=== PATIENT | male | born 1975 | race Caucasian/White ===

== ENCOUNTER 2016-04-21 14:16 | Inpatient (IN) | payer OTHER ==
[~2016-04-21] VITALS: Ht 170.2 cm; Wt 104.5 kg
[2016-04-21] MEDS ORDERED: CHL25 PO (14:33)
[2016-04-21] MEDS ORDERED: LISI-661 PO (14:33)
[2016-04-21] MEDS ORDERED: MECLIZINE HCL 25 MG TABLET PO ONE (17:15)
[2016-04-21 17:28] LABS: BASOPHILS % (AUTO) 0.2 % (0.0-2.0); EOSINOPHILS % (AUTO) 0.5 % (1.0-6.0); HEMATOCRIT 41.1 % (41-53); HEMOGLOBIN 13.8 g/dL (13.5-17.5); LYMPHOCYTES # (AUTO) 1.2 K/uL (1.0-4.8); LYMPHOCYTES % (AUTO) 15.2 % (22.0-44.0); MEAN CORPUSCULAR HEMOGLOBIN 27.7 pg (26.0-34.0); MEAN CORPUSCULAR HGB CONC 33.7 G/dL (31.0-37.0); MEAN CORPUSCULAR VOLUME 82 fL (80-100); MONOCYTES # (AUTO) 0.4 K/uL (0.1-1.0); MONOCYTES % (AUTO) 4.7 % (2.0-9.0); NEUTROPHILS # (AUTO) 6.1 K/uL (1.8-7.7); NEUTROPHILS % (AUTO) 79.4 % (40.0-70.0); PLATELET COUNT (AUTO) 245 K/uL (150-450); RED BLOOD CELL COUNT(AUTO) 4.98 MIL/uL (4.50-5.90); RED CELL DISTRIBUTION WIDTH 14.6 % (11.5-14.5); WHITE BLOOD COUNT (AUTO) 7.7 K/uL (4.5-11.0)
[2016-04-21 18:06] LABS: ALANINE AMINOTRANSFERASE 21 U/L (12-78); ALBUMIN 3.9 g/dL (3.4-5.0); ANION GAP 20 mmol/L (8-16); ASPARTATE AMINOTRANSFERASE 9 U/L (15-37); BILIRUBIN,TOTAL 0.2 mg/dL (0.1-1.0); CARBON DIOXIDE 12 mmol/L (22-29); CHLORIDE 109 mmol/L (98-107); CREATINE KINASE MB 2.6 ng/mL (0-5); CREATINE KINASE, TOTAL 185 U/L (39-308); CREATININE 9.48 mg/dL (0.60-1.30); GLOMERULAR FILTR. RATE CALC 6 mL/min (>60); SODIUM SERUM 141 mmol/L (136-145)
[2016-04-21 18:11] LABS: UREA NITROGEN, BLOOD 149 mg/dL (7-18)
[2016-04-21 19:01] LABS: CALCIUM, TOTAL 6.8 mg/dL (8.8-10.5); CREATININE 9.63 mg/dL (0.60-1.30); POTASSIUM 4.9 mmol/L (3.5-5.1)
[2016-04-21 19:41] LABS: APPEARANCE,URINE CLOUDY (CLEAR); GLUCOSE, URINE (UA) NEGATIVE (NEGATIVE); KETONES,URINE NEGATIVE (NEGATIVE); LEUKOCYTE ESTERASE ,URINE LARGE (NEGATIVE); OCCULT BLOOD,URINE SMALL (NEGATIVE); PROTEIN,URINE SEE CONFIRM (NEGATIVE)
[2016-04-21] MEDS ORDERED: 0.9% SODIUM CHLORIDE 10 ML SYRINGE IVP PRN (19:45)
[2016-04-21] MEDS ORDERED: ACETAMINOPHEN 325 MG TABLET PO PRN ×2 (19:45→21:30)
[2016-04-21] MEDS ORDERED: ONDANSETRON HCL 4 MG/2 ML VIAL IVP PRN (19:45)
[2016-04-21] MEDS ORDERED: SODIUM BICARBONATE 150 MEQ in DEXTROSE 5%-0.45% SODIUM CHL 1,000 ML IV ONE (19:45)
[2016-04-21 19:51] LABS: ADD UA MICROSCOPIC YES
[2016-04-21 19:51] LABS: ABG A-A DIFF O2 48.3 mmHg (10-20.0); ABG BASE EXCESS -20.9 mmol/L (-2.0-3.0); ABG HCO3 10.5 mmol/L (22.0-26.0); ABG PCO2 24 mmHg (35-45); TEMPERATURE, FAHRENHEIT, BG 98.6 FAHREN (96.0-98.6)
[2016-04-21 19:53] LABS: ALLEN TEST, BLOOD GAS Positive
[2016-04-21 20:06] LABS: RBC,URINE None Seen /HPF (0-2); SULFOSALICYLIC ACID,URINE 1+ (Negative); WBC,URINE >100 /HPF (0-5)
[2016-04-21 21:29] VITALS: BP 142/77
[2016-04-21] MEDS ORDERED: ZOLPIDEM TARTRATE 5 MG TABLET PO PRN (21:30)
[2016-04-21 23:08] VITALS: BP 136/81
[2016-04-21] MEDS: CefTRIAXone 1 GM/DEXTROSE 50 ML IV SCH (23:21)
[2016-04-22] MEDS: SODIUM CHLORIDE 0.9% 1,000 ML IV SCH ×2 (04:24→07:30)
[2016-04-22 04:34] VITALS: BP_SYST 136; BP_SYST 144; BP_DIAS 70; BP_DIAS 83
[2016-04-22 06:07] LABS: ABG A-A DIFF O2 13.4 mmHg (10-20.0); ABG BASE EXCESS -15.3 mmol/L (-2.0-3.0); ABG HCO3 13.9 mmol/L (22.0-26.0); ABG OXYHEMOGLOBIN 96.9 % (94.0-100.0); ABG PCO2 27 mmHg (35-45); ABG PH 7.259 (7.35-7.450); TEMPERATURE, FAHRENHEIT, BG 98.6 FAHREN (96.0-98.6)
[2016-04-22 06:57] LABS: CALCIUM, TOTAL 6.5 mg/dL (8.8-10.5); CREATININE 8.7 mg/dL (0.60-1.30)
[2016-04-22 07:14] VITALS: BP 138/88
[2016-04-22] MEDS: DOCUSATE SODIUM 100 MG CAPSULE PO SCH ×2 (08:22→19:49)
[2016-04-22] MEDS: SODIUM BICARBONATE 100 MEQ in DEXTROSE 5%-WATER 1,000 ML IV SCH ×2 (10:50→21:43)
[2016-04-22 11:36] VITALS: BP 145/92
[2016-04-22 11:57] LABS: GLUCOSE,POINT OF CARE 89 MG/DL (70-110)
[2016-04-22] MEDS ORDERED: 0.9% SODIUM CHLORIDE 10 ML SYRINGE IVP PRN (12:00)
[2016-04-22 15:55] VITALS: BP 153/86
[2016-04-22 19:17] VITALS: BP 153/90
[2016-04-22] MEDS: CefTRIAXone 1 GM/DEXTROSE 50 ML IV SCH (21:42)
[2016-04-22 21:47] LABS: APPEARANCE,URINE CLOUDY (CLEAR); GLUCOSE, URINE (UA) NEGATIVE (NEGATIVE); KETONES,URINE NEGATIVE (NEGATIVE); LEUKOCYTE ESTERASE ,URINE MODERATE (NEGATIVE); OCCULT BLOOD,URINE TRACE (NEGATIVE); PH,URINE 5.5 (5.0-8.0); PROTEIN,URINE POS 1+ (NEGATIVE)
[2016-04-22 21:57] LABS: SQUAMOUS EPITHELIAL CELL,UR Rare /LPF (None Seen); WBC,URINE 26-50 /HPF (0-5)
[2016-04-22 23:48] VITALS: BP 153/89
[2016-04-23 05:09] VITALS: BP 142/94
[2016-04-23 06:47] LABS: CALCIUM, TOTAL 6.4 mg/dL (8.8-10.5); CREATININE 7.25 mg/dL (0.60-1.30); MAGNESIUM 1.9 mg/dL (1.80-2.40); PHOSPHORUS 6.6 mg/dL (2.5-4.9); POTASSIUM 3.5 mmol/L (3.5-5.1)
[2016-04-23] MEDS: SODIUM BICARBONATE 100 MEQ in DEXTROSE 5%-WATER 1,000 ML IV SCH ×2 (07:00→14:25)
[2016-04-23 07:25] VITALS: BP 143/92
[2016-04-23] MEDS: DOCUSATE SODIUM 100 MG CAPSULE PO SCH ×2 (09:00→20:37)
[2016-04-23 12:14] VITALS: BP 149/89
[2016-04-23 15:20] VITALS: BP 146/94
[2016-04-23 19:30] VITALS: BP 157/98
[2016-04-23] MEDS: CefTRIAXone 1 GM/DEXTROSE 50 ML IV SCH (22:14)
[2016-04-23 23:15] VITALS: BP 144/87
[2016-04-24] MEDS: SODIUM BICARBONATE 100 MEQ in DEXTROSE 5%-WATER 1,000 ML IV SCH (02:53)
[2016-04-24 05:04] VITALS: BP 145/92
[2016-04-24 08:14] VITALS: BP 147/93
[2016-04-24 08:27] LABS: CALCIUM, TOTAL 6.4 mg/dL (8.8-10.5); CREATININE 6.3 mg/dL (0.60-1.30); MAGNESIUM 1.7 mg/dL (1.80-2.40); PHOSPHORUS 6.1 mg/dL (2.5-4.9); POTASSIUM 3.1 mmol/L (3.5-5.1)
[2016-04-24] MEDS ORDERED: POTASSIUM CHLORIDE 10 MEQ ER TABLET PO ONE (09:45)
[2016-04-24] MEDS: DOCUSATE SODIUM 100 MG CAPSULE PO SCH ×2 (10:46→21:12)
[2016-04-24] MEDS: AmLODIPine BESYLATE 5 MG TABLET PO SCH (10:46)
[2016-04-24] MEDS: POTASSIUM CHL 10 MEQ/WATER 50 ML IV SCH ×2 (10:48→15:19)
[2016-04-24] MEDS ORDERED: SODIUM CHLORIDE 0.9% 500 ML IV ONE (11:18)
[2016-04-24 11:44] VITALS: BP 143/95
[2016-04-24 15:14] LABS: CALCIUM, TOTAL 6.7 mg/dL (8.8-10.5); CREATININE 6.11 mg/dL (0.60-1.30); POTASSIUM 3.5 mmol/L (3.5-5.1)
[2016-04-24] MEDS ORDERED: SODIUM CHLORIDE 0.9% 250 ML IV ONE (15:21)
[2016-04-24 15:50] VITALS: BP 138/96
[2016-04-24 20:53] VITALS: BP 142/97
[2016-04-24] MEDS: CefTRIAXone 1 GM/DEXTROSE 50 ML IV SCH (21:15)
[2016-04-24 23:15] VITALS: BP 137/76
[2016-04-25 04:00] VITALS: BP 146/90
[2016-04-25 07:04] LABS: CALCIUM, TOTAL 6.8 mg/dL (8.8-10.5); CREATININE 5.93 mg/dL (0.60-1.30); MAGNESIUM 1.7 mg/dL (1.80-2.40); PHOSPHORUS 5.5 mg/dL (2.5-4.9); POTASSIUM 3.7 mmol/L (3.5-5.1)
[2016-04-25 08:07] VITALS: BP 152/85
[2016-04-25] MEDS: AmLODIPine BESYLATE 5 MG TABLET PO SCH ×2 (09:38→20:51)
[2016-04-25] MEDS: DOCUSATE SODIUM 100 MG CAPSULE PO SCH ×2 (09:38→20:51)
[2016-04-25 11:00] VITALS: BP 134/88
[2016-04-25] MEDS: CALCIUM ACETATE 667 MG CAPSULE PO SCH ×2 (13:20→18:00)
[2016-04-25 15:00] VITALS: BP 145/95
[2016-04-25] MEDS: CefTRIAXone 1 GM/DEXTROSE 50 ML IV SCH (20:51)
[2016-04-25 21:36] VITALS: BP 138/81
[2016-04-25 23:34] VITALS: BP 135/84
[2016-04-26 02:33] LABS: COMPLEMENT C3 126 mg/dL (82-167); COMPLEMENT C4 39 mg/dL (14-44)
[2016-04-26 04:00] VITALS: BP 135/92
[2016-04-26 06:18] LABS: INR 1.1 (0.9-1.1); PROTHROMBIN TIME 11.3 SEC (9.4-11.6)
[2016-04-26 06:30] LABS: CALCIUM, TOTAL 7.5 mg/dL (8.8-10.5); CREATININE 5.86 mg/dL (0.60-1.30); MAGNESIUM 1.7 mg/dL (1.80-2.40); PHOSPHORUS 5.2 mg/dL (2.5-4.9); POTASSIUM 3.7 mmol/L (3.5-5.1)
[2016-04-26 07:48] VITALS: BP 132/81
[2016-04-26] MEDS: DOCUSATE SODIUM 100 MG CAPSULE PO SCH ×2 (08:10→21:46)
[2016-04-26] MEDS: AmLODIPine BESYLATE 5 MG TABLET PO SCH ×2 (08:11→21:46)
[2016-04-26] MEDS: CALCIUM ACETATE 667 MG CAPSULE PO SCH ×3 (08:11→17:53)
[2016-04-26 11:50] VITALS: BP 138/89
[2016-04-26 15:15] VITALS: BP 152/86
[2016-04-26] MEDS: CHOLECALCIFEROL (VIT D3) 2,000 UNITS TABLET PO SCH (17:53)
[2016-04-26 19:47] VITALS: BP 142/77
[2016-04-26] MEDS: CefTRIAXone 1 GM/DEXTROSE 50 ML IV SCH (21:46)
[2016-04-26 23:28] VITALS: BP 138/73
[2016-04-27 04:30] VITALS: BP 106/64
[2016-04-27 06:19] LABS: BASOPHILS # (AUTO) 0.06 K/uL (0.00-0.20); BASOPHILS % (AUTO) 0.6 % (0.0-2.0); EOSINOPHILS # (AUTO) 0.33 K/uL (0.00-0.70); EOSINOPHILS % (AUTO) 3.51 % (1.0-6.0); HEMOGLOBIN 12.5 g/dL (13.5-17.5); LYMPHOCYTES # (AUTO) 1.5 K/uL (1.0-4.8); LYMPHOCYTES % (AUTO) 15.9 % (22.0-44.0); MEAN CORPUSCULAR HEMOGLOBIN 27.4 pg (26.0-34.0); MEAN CORPUSCULAR HGB CONC 33.7 G/dL (31.0-37.0); MEAN CORPUSCULAR VOLUME 81 fL (80-100); MONOCYTES # (AUTO) 0.7 K/uL (0.1-1.0); MONOCYTES % (AUTO) 7.7 % (2.0-9.0); NEUTROPHILS # (AUTO) 6.8 K/uL (1.8-7.7); NEUTROPHILS % (AUTO) 72.3 % (40.0-70.0); PLATELET COUNT (AUTO) 227 K/uL (150-450); RED BLOOD CELL COUNT(AUTO) 4.54 MIL/uL (4.50-5.90); RED CELL DISTRIBUTION WIDTH 13.8 % (11.5-14.5); WHITE BLOOD COUNT (AUTO) 9.4 K/uL (4.5-11.0)
[2016-04-27 06:41] LABS: CALCIUM, TOTAL 7.9 mg/dL (8.8-10.5); CREATININE 5.76 mg/dL (0.60-1.30); POTASSIUM 4.1 mmol/L (3.5-5.1)
[2016-04-27 07:16] VITALS: BP 127/67
[2016-04-27] MEDS: DOCUSATE SODIUM 100 MG CAPSULE PO SCH ×2 (08:08→20:49)
[2016-04-27] MEDS: AmLODIPine BESYLATE 5 MG TABLET PO SCH ×2 (08:08→20:49)
[2016-04-27] MEDS: CHOLECALCIFEROL (VIT D3) 2,000 UNITS TABLET PO SCH (08:08)
[2016-04-27] MEDS: CALCIUM ACETATE 667 MG CAPSULE PO SCH ×3 (08:08→16:54)
[2016-04-27 11:15] VITALS: BP 133/84
[2016-04-27] MEDS ORDERED: SODIUM CHLORIDE 0.9% 1,000 ML IV ONE (12:20)
[2016-04-27 19:30] VITALS: BP 121/77
[2016-04-27] MEDS: CefTRIAXone 1 GM/DEXTROSE 50 ML IV SCH (23:08)
[2016-04-28] VITALS (7 sets, daily range): BP systolic 109–154; BP diastolic 67–85
[2016-04-28 06:40] LABS: CALCIUM, TOTAL 7.9 mg/dL (8.8-10.5); CREATININE 5.84 mg/dL (0.60-1.30); MAGNESIUM 2.1 mg/dL (1.80-2.40); PHOSPHORUS 6.1 mg/dL (2.5-4.9); POTASSIUM 3.7 mmol/L (3.5-5.1)
[2016-04-28] MEDS: CALCIUM ACETATE 667 MG CAPSULE PO SCH ×3 (08:00→20:24)
[2016-04-28] MEDS: CHOLECALCIFEROL (VIT D3) 2,000 UNITS TABLET PO SCH (09:00)
[2016-04-28] MEDS: DOCUSATE SODIUM 100 MG CAPSULE PO SCH ×2 (09:00→22:09)
[2016-04-28] MEDS: AmLODIPine BESYLATE 5 MG TABLET PO SCH ×2 (09:00→20:24)
[2016-04-28] MEDS ORDERED: FentaNYL CITRATE-PF 100 MCG/2 ML VIAL ONE (11:23)
[2016-04-28] MEDS ORDERED: MIDAZOLAM HCL 2 MG/2 ML VIAL ONE (11:24)
[2016-04-28] MEDS ORDERED: LIDOCAINE HCL/PF 1% 30 ML VIAL ONE (11:24)
[2016-04-28] MEDS ORDERED: GELATIN SPONGE,ABSORBABLE 12-7 MM TP ONE (11:24)
[2016-04-28] MEDS ORDERED: MIDAZOLAM HCL 2 MG/2 ML VIAL IVP ONE (11:43)
[2016-04-28] MEDS ORDERED: FentaNYL CITRATE-PF 100 MCG/2 ML VIAL IVP ONE (11:43)
[2016-04-28] MEDS: CefTRIAXone 1 GM/DEXTROSE 50 ML IV SCH (22:08)
[2016-04-29 04:28] VITALS: BP 143/85
[2016-04-29 06:20] LABS: BASOPHILS % (AUTO) 0.6 % (0.0-2.0); EOSINOPHILS % (AUTO) 4.1 % (1.0-6.0); LYMPHOCYTES % (AUTO) 11.8 % (22.0-44.0); MEAN CORPUSCULAR HEMOGLOBIN 27.3 pg (26.0-34.0); MEAN CORPUSCULAR HGB CONC 33.2 G/dL (31.0-37.0); MEAN CORPUSCULAR VOLUME 82 fL (80-100); MONOCYTES # (AUTO) 0.5 K/uL (0.1-1.0); MONOCYTES % (AUTO) 6.1 % (2.0-9.0); NEUTROPHILS # (AUTO) 6.6 K/uL (1.8-7.7); NEUTROPHILS % (AUTO) 77.4 % (40.0-70.0); PLATELET COUNT (AUTO) 225 K/uL (150-450); RED BLOOD CELL COUNT(AUTO) 4.38 MIL/uL (4.50-5.90); RED CELL DISTRIBUTION WIDTH 13.4 % (11.5-14.5); WHITE BLOOD COUNT (AUTO) 8.5 K/uL (4.5-11.0)
[2016-04-29 06:42] LABS: CALCIUM, TOTAL 7.9 mg/dL (8.8-10.5); CREATININE 5.73 mg/dL (0.60-1.30); MAGNESIUM 2.1 mg/dL (1.80-2.40)
[2016-04-29 07:32] VITALS: BP 118/81
[2016-04-29] MEDS: DOCUSATE SODIUM 100 MG CAPSULE PO SCH (08:17)
[2016-04-29] MEDS: CHOLECALCIFEROL (VIT D3) 2,000 UNITS TABLET PO SCH (08:17)
[2016-04-29] MEDS: AmLODIPine BESYLATE 5 MG TABLET PO SCH (08:17)
[2016-04-29] MEDS: CALCIUM ACETATE 667 MG CAPSULE PO SCH ×2 (08:17→11:28)
[2016-04-29 11:20] VITALS: BP 147/91
[2016-04-29] MEDS ORDERED: PHOSLOC PO (13:38)
[2016-04-29] MEDS ORDERED: AMLO-511 PO (13:38)
[2016-04-29] MEDS ORDERED: CHOL200012 PO (13:40)
== END 2016-04-29 14:30 | disposition home or self-care (01) | DRG 282 ==
LOC: EMS 14:32 → 6N 19:49
PROVIDERS: ADMIT Internal Medicine; ATTEND Internal Medicine
PROC: 0TB13ZX Excision of Left Kidney, Percutaneous Approach, Diagnostic (ICD-10-PCS; principal; 2016-04-28)
DX: K85.90 Acute pancreatitis without necrosis or infection, unspecified (principal); N17.0 Acute kidney failure with tubular necrosis; I12.9 Hypertensive chronic kidney disease with stage 1 through stage 4 chronic kidney disease, or unspecified chronic kidney disease; E87.2 Acidosis; N39.0 Urinary tract infection, site not specified; N17.9 Acute kidney failure, unspecified; E66.9 Obesity, unspecified; E83.51 Hypocalcemia; E86.0 Dehydration; E87.6 Hypokalemia; K21.9 Gastro-esophageal reflux disease without esophagitis; N18.9 Chronic kidney disease, unspecified; N40.0 Benign prostatic hyperplasia without lower urinary tract symptoms; F17.210 Nicotine dependence, cigarettes, uncomplicated; Z87.440 Personal history of urinary (tract) infections; Z79.899 Other long term (current) drug therapy; Z68.36 Body mass index [BMI] 36.0-36.9, adult; Z82.49 Family history of ischemic heart disease and other diseases of the circulatory system
CPT/HCPCS: 50200; 74176; 76770; 82306; 82570; 82805; 82962; 83735; 83970; 84100; 84156; 84300; 84540; 86160; 87086; 88300; 88305; 88313; 88346; 88348; 89050; 93005; 96365; 96366; 99291; J0696; J2250; J3010; J3480; J3490; J7030; J7040; J7050; J7060

== ENCOUNTER 2024-08-29 15:18 | Emergency (ER) | payer OTHER ==
[~2024-08-29] VITALS: Ht 167.6 cm; Wt 80.0 kg
[~2024-08-29 15:18] MED LIST: APIX2.5T PO; CLOP75TA83 PO; FLUD.1 PO; GENTOS TP; LEVO50 PO; MIDO5TAB29 PO; OXYC5 PO; SEVE0.8P7 PO
[2024-08-29 17:04] VITALS: BP 96/63; PULSE 99; RESP 17; TEMP 98.5; O2SAT 98
== END 2024-08-29 18:36 | disposition home or self-care (01) ==
LOC: EMS 15:18
DX: T82.594A Other mechanical complication of infusion catheter, initial encounter (principal); N28.89 Other specified disorders of kidney and ureter; Z98.890 Other specified postprocedural states; Z87.891 Personal history of nicotine dependence; Z99.2 Dependence on renal dialysis; Z79.02 Long term (current) use of antithrombotics/antiplatelets; Z79.899 Other long term (current) drug therapy; Z91.013 Allergy to seafood; Z91.09 Other allergy status, other than to drugs and biological substances
CPT/HCPCS: 99282; Z7502

== ENCOUNTER 2024-09-02 21:50 | Emergency (ER) | payer OTHER ==
[~2024-09-02] VITALS: Ht 162.6 cm; Wt 100.0 kg
[2024-09-02 22:05] VITALS: BP 93/59; PULSE 111; RESP 18; TEMP 98.6; O2SAT 98
== END 2024-09-02 22:44 | disposition home or self-care (01) ==
LOC: EMS 22:02
DX: T82.594A Other mechanical complication of infusion catheter, initial encounter (principal); N18.6 End stage renal disease; Z91.013 Allergy to seafood; Z88.8 Allergy status to other drugs, medicaments and biological substances; Z79.02 Long term (current) use of antithrombotics/antiplatelets; Z99.2 Dependence on renal dialysis
CPT/HCPCS: 99281; 99282; Z7502

== ENCOUNTER 2024-10-14 20:22 | Emergency (ER) | payer OTHER ==
[~2024-10-14] VITALS: Ht 167.6 cm; Wt 75.0 kg
[2024-10-14 21:51] LABS: PLATELET COUNT (AUTO) 360 K/uL (150-450); RED BLOOD CELL COUNT(AUTO) 3.26 MIL/uL (4.50-5.90); RED CELL DISTRIBUTION WIDTH 19.0 % (11.5-14.5); WHITE BLOOD COUNT (AUTO) 10.9 K/uL (4.5-11.0)
[2024-10-14 21:54] LABS: CALCIUM, TOTAL 10.7 mg/dL (8.8-10.5); CREATININE 12.29 mg/dL (0.60-1.30); GLOMERULAR FILTR. RATE CALC 4.0 mL/min (>60); GLUCOSE,RANDOM 93.0 mg/dL (70-110); SODIUM SERUM 138.0 mmol/L (136-145); UREA NITROGEN, BLOOD 57.0 mg/dL (7-18)
[2024-10-14] MEDS: METOCLOPRAMIDE HCL 5 MG/ML 2 ML VIAL IVP ONE (23:50)
[2024-10-15 00:10] VITALS: BP 118/62; PULSE 90; RESP 18; TEMP 97.3; O2SAT 98
[2024-10-15 06:40] LABS: GLUCOMETER DEV NAME(LOC) ER.7; GLUCOSE,POINT OF CARE 79 MG/DL (70-110)
== END 2024-10-15 00:18 | disposition home or self-care (01) ==
LOC: EMS 20:31
DX: R11.2 Nausea with vomiting, unspecified (principal); N18.6 End stage renal disease; Z99.2 Dependence on renal dialysis; Z79.02 Long term (current) use of antithrombotics/antiplatelets; Z98.890 Other specified postprocedural states; Z79.899 Other long term (current) drug therapy; Z91.013 Allergy to seafood
CPT/HCPCS: 80048; 82962; 83690; 85025; 93005; 99284